=== PATIENT | female | born 1985 | race Caucasian/White ===

== ENCOUNTER 2019-03-31 23:58 | Emergency (ER) | payer MEDICAID ==
--- NOTE | 2019-04-01 00:45 | ED Physician Chart ---
ED Chief Complaint/HPI - Patient Information Date Seen:: 04/01/19 Time Seen:: 00:40 Chief Complaint:: Chest pain History of Present Illness:: 33 yo female had right chest pain for 3 months. It was constant sharp pain, 8/10 , worsened by taking deep breath. Pt denied chest pressure. Pt also had bilateral flank pain for 3-4 months. Vitals:: Vital Signs - 8 hr 04/01/19 00:13 Temp 99.3 F HR 109 RR 18 BP 125/75 O2 Sat % 98 ED Review of Systems - Review of Systems General/Constitutional: No fever, No chills Skin: No rash Head: Headache Eyes: No pain ENT: No earache Neck: Neck pain (right side) Cardio Vascular: Chest pain GI: No nausea, No vomiting, No pain Musculoskeletal: Muscle pain Neurological: No focal symptoms ED Past Medical History - Past Medical History Past Medical History: No significant medical hx, Other () Family History: Diabetes Melitus Social History: Smoker (smoke marijuana), Alcohol (occasionally), No Drug Use Surgical History: Cholecystectomy, (x 1 ) Family Medical History - Family Member Mother History Unknown: Yes ED Physical Exam - Physical Examination General/Constitutional: Awake, Alert Head: Atraumatic Eyes: PERRL Skin: No skin lesions ENMT: Nasal exam nl Neck: No nuchal rigidity Respiratory: Clear to Auscultation Other Respiratory comments:: Right anterior chest para-sternum tenderness Cardio Vascular: RRR, No murmur, gallop, rubs, NL S1 S2 GI: No tenderness/rebounding/guarding Extremities: normal strength in all extremities Neuro/Psych: No focal deficits ED Labs/Radiology/EKG Results - Lab Results Results: Lab Results 04/01/19 04/01/19 04/01/19 Range/Units 00:26 00:26 01:05 WBC 9.4 (4.8-10.8) Th/cmm RBC 4.09 (3.80-5.10) Mil/cmm Hgb 11.7 L (12-16) gm/dL Hct 34.6 L (41.0-60) % MCV 84.6 (81-100) fl MCH 28.5 (27.0-31.0) pg MCHC Differential 33.7 (28.0-36.0) pg RDW 13.2 (11.5-20.0) % Plt Count 324 (150-400) Th/cmm MPV 7.8 fl Neutrophils % 72.2 (40.0-80.0) % Lymphocytes % 21.7 (20.0-50.0) % Monocytes % 4.1 (2.0-10.0) % Eosinophils % 1.2 (0.0-5.0) % Basophils % 0.8 (0.0-2.0) % PT (9.5-11.5) SECONDS INR (0.5-1.4) PTT (Actin FS) (26.0-38.0) SECONDS Sodium (136-145) mEq/L Potassium (3.5-5.1) mEq/L Chloride (98-107) mEq/L Carbon Dioxide (21.0-31.0) mEq/L Anion Gap (7.0-16.0) BUN (7-25) mg/dL Creatinine (0.6-1.2) mg/dL Est GFR ( Amer) (>90) ml/min Est GFR (Non-Af Amer) ml/min BUN/Creatinine Ratio Glucose (70-105) mg/dL Calcium (8.6-10.3) mg/dL Total Bilirubin (0.3-1.0) mg/dL AST (13-39) U/L ALT (7-52) U/L Alkaline Phosphatase (34-104) U/L Troponin I (0.01-0.05) ng/mL Total Protein (6.0-8.3) gm/dL Albumin (3.7-5.3) gm/dL Globulin gm/dL Albumin/Globulin Ratio (1.0-1.8) Urine Source [place] Urine Color YELLOW Urine Clarity CLEAR (CLEAR) Urine pH 6.0 (4.6 - 8.0) Ur Specific [place] 1.020 (1.005-1.030) Urine Protein NEGATIVE (NEGATIVE) mg/dL Urine Glucose (UA) NEGATIVE (NEGATIVE) mg/dL Urine Ketones NEGATIVE (NEGATIVE) mg/dL Urine Blood NEGATIVE (NEGATIVE) Urine Nitrate NEGATIVE (NEGATIVE) Urine Bilirubin NEGATIVE (NEGATIVE) Urine Urobilinogen 0.2 (0.2 - 1.0) E.U./dL Ur Leukocyte Esterase SMALL H (NEGATIVE) Urine RBC NONE SEEN (0-5) /hpf Urine WBC 2-5 (0-5) /hpf Ur Epithelial Cells FEW (FEW) /lpf Urine Bacteria FEW (NONE SEEN) /hpf Urine Test NEGATIVE 04/01/19 04/01/19 04/01/19 Range/Units 01:05 01:05 01:05 WBC (4.8-10.8) Th/cmm RBC (3.80-5.10) Mil/cmm Hgb (12-16) gm/dL Hct (41.0-60) % MCV (81-100) fl MCH (27.0-31.0) pg MCHC Differential (28.0-36.0) pg RDW (11.5-20.0) % Plt Count (150-400) Th/cmm MPV fl Neutrophils % (40.0-80.0) % Lymphocytes % (20.0-50.0) % Monocytes % (2.0-10.0) % Eosinophils % (0.0-5.0) % Basophils % (0.0-2.0) % PT 9.8 (9.5-11.5) SECONDS INR 0.94 (0.5-1.4) PTT (Actin FS) 23.2 L (26.0-38.0) SECONDS Sodium 137 (136-145) mEq/L Potassium 3.7 (3.5-5.1) mEq/L Chloride 104 (98-107) mEq/L Carbon Dioxide 23.4 (21.0-31.0) mEq/L Anion Gap 13.3 (7.0-16.0) BUN 12 (7-25) mg/dL Creatinine 0.7 (0.6-1.2) mg/dL Est GFR ( Amer) > 60.0 (>90) ml/min Est GFR (Non-Af Amer) > 60.0 ml/min BUN/Creatinine Ratio 17.1 Glucose 95 (70-105) mg/dL Calcium 9.5 (8.6-10.3) mg/dL Total Bilirubin 0.2 L (0.3-1.0) mg/dL AST 19 (13-39) U/L ALT 45 (7-52) U/L Alkaline Phosphatase 61 (34-104) U/L Troponin I < 0.01 L (0.01-0.05) ng/mL Total Protein 7.0 (6.0-8.3) gm/dL Albumin 4.2 (3.7-5.3) gm/dL Globulin 2.8 gm/dL Albumin/Globulin Ratio 1.5 (1.0-1.8) Urine Source Urine Color Urine Clarity (CLEAR) Urine pH (4.6 - 8.0) Ur Specific [place] (1.005-1.030) Urine Protein (NEGATIVE) mg/dL Urine Glucose (UA) (NEGATIVE) mg/dL Urine Ketones (NEGATIVE) mg/dL Urine Blood (NEGATIVE) Urine Nitrate (NEGATIVE) Urine Bilirubin (NEGATIVE) Urine Urobilinogen (0.2 - 1.0) E.U./dL Ur Leukocyte Esterase (NEGATIVE) Urine RBC (0-5) /hpf Urine WBC (0-5) /hpf Ur Epithelial Cells (FEW) /lpf Urine Bacteria (NONE SEEN) /hpf Urine Test - Radiology Results Results: CXR: no acute disease ED Assessment - Assessment General Assessment: Costochondritis UTI Mild anemia Assessment/Comments:: CBC, CMP, PT/PTT, troponin, BNP, UA CXR, EKG Keflex 500 mg PO x 1 D/c home ED Septic Shock - . Is Septic Shock (SBP<90, OR Lactate>4 mmol\L) present?: No - <6hrs of presentation: Vital Signs: Vital Signs - 8 hr 04/01/19 00:13 Temp 99.3 F HR 109 RR 18 BP 125/75 O2 Sat % 98 ED Reassessment (Disposition) - Reassessment Reassessment Condition:: Improved - Aftercare/Follow up Instructions Medication Prescribed:: Keflex 500 mg bid x 3 days F/u PCP or return to ER if symptoms worsen - Patient Disposition Discharge/Transfer:: Home
[2019-04-01 01:14] LABS: % BASOPHILS 0.8 % (0.0-2.0); % EOSINOPHILS 1.2 % (0.0-5.0); % LYMPHOCYTES 21.7 % (20.0-50.0); % MONOCYTES 4.1 % (2.0-10.0); % NEUTROPHILS 72.2 % (40.0-80.0); BASOPHILE ABSOLUTE 0.1 Th/cumm (0-0.2); EOSINOPHILE ABSOLUTE 0.1 Th/cmm (0.1-0.4); HEMATOCRIT 34.6 % (41.0-60); HEMOGLOBIN 11.7 gm/dL (12-16); MEAN CELL VOLUME 84.6 fl (81-100); MEAN CORPUSCULAR HEMOGLOBIN 28.5 pg (27.0-31.0); MEAN CORPUSCULAR HGB CONC 33.7 pg (28.0-36.0); MONOCYTE ABSOLUTE 0.4 Th/cmm (0.3-1.0); NEUTROPHILE ABSOLUTE 6.8 Th/cmm (1.8-8.0); PLATELET COUNT 324 Th/cmm (150-400); RED BLOOD COUNT 4.09 Mil/cmm (3.80-5.10); RED CELL DISTRIBUTION WIDTH 13.2 % (11.5-20.0); WHITE BLOOD COUNT 9.4 Th/cmm (4.8-10.8)
[2019-04-01 01:26] LABS: URINE SOURCE MIDSTREAM
[2019-04-01 01:28] LABS: URINE BILIRUBIN NEGATIVE (NEGATIVE); URINE BLOOD NEGATIVE (NEGATIVE); URINE GLUCOSE (UA) NEGATIVE (NEGATIVE); URINE KETONE NEGATIVE (NEGATIVE); URINE LEUKOCYTE ESTERASE SMALL (NEGATIVE); URINE NITRATE NEGATIVE (NEGATIVE); URINE PROTEIN NEGATIVE (NEGATIVE); URINE UROBILINOGEN 0.2 E.U./dL (0.2 - 1.0)
[2019-04-01 01:31] LABS: INR 0.94 (0.5-1.4)
[2019-04-01 01:52] LABS: ALB/GLOB RATIO 1.5 (1.0-1.8); ALBUMIN 4.2 gm/dL (3.7-5.3); ALKALINE PHOSPHATASE 61 U/L (34-104); ANION GAP 13.3 (7.0-16.0); BILIRUBIN,TOTAL 0.2 mg/dL (0.3-1.0); BUN - UREA NITROGEN 12 mg/dL (7-25); CALCIUM SERUM 9.5 mg/dL (8.6-10.3); CARBON DIOXIDE 23.4 mEq/L (21.0-31.0); CHLORIDE 104 mEq/L (98-107); CREATININE - SERUM 0.7 mg/dL (0.6-1.2); GFR AFRICAN-AMERICAN > 60.0 ml/min (>90); GFR NON AFRICAN-AMERICAN > 60.0 ml/min; GLUCOSE 95 mg/dL (70-105); POTASSIUM SERUM 3.7 mEq/L (3.5-5.1); SGOT 19 U/L (13-39); SGPT/ALT 45 U/L (7-52); SODIUM SERUM 137 mEq/L (136-145)
[2019-04-01 01:56] LABS: URINE CLARITY CLEAR (CLEAR); URINE COLOR YELLOW; URINE MICROSCOPIC INDICATED? YES
[2019-04-01 02:01] LABS: URINE BACTERIA FEW /hpf (NONE SEEN); URINE EPITHELIAL CELLS FEW /lpf (FEW); URINE RBC NONE SEEN /hpf (0-5)
--- NOTE | 2019-04-01 09:23 | Diagnostic Imaging Report ---
Portable chest x-ray History: Pain Allowing for portable technique the heart size is normal. No focal pulmonary parenchymal processes. No hilar or mediastinal abnormalities. Impression: No acute abnormalities.
== END 2019-04-01 02:16 | disposition home or self-care (01) ==
LOC: ER 23:58
DX: M94.0 Chondrocostal junction syndrome [Tietze] (principal); N39.0 Urinary tract infection, site not specified; D64.9 Anemia, unspecified; F17.200 Nicotine dependence, unspecified, uncomplicated; Z90.49 Acquired absence of other specified parts of digestive tract; Z98.890 Other specified postprocedural states
CPT/HCPCS: 99284; 96372; 84484; 36415; 85025; 85610; 81001; 81025; 80053; 71045; 93005; J1885; Z7610